=== PATIENT | female | born 2000 | race Caucasian/White ===

== ENCOUNTER 2022-12-11 20:35 | Emergency (ER) | payer OTHER, SELFPAY ==
[2022-12-11 20:36] VITALS: BP 128/79; PULSE 99; RESP 15; TEMP 36.6; O2SAT 98; BMI 39.6
--- NOTE | 2022-12-11 20:49 | EDS_ITS ---
HPI History of Present Illness Chief Complaint: Back [facility] Medical History (Updated 12/11/22 @ 21:04 by Collin Ray) Major depression Vitamin D deficiency Allergy/AdvReac Type Severity Reaction Status Date / Time No Known Allergies Allergy Verified 12/11/22 20:40 Social History Smoking Status: Never smoker EXAM Physical Exam Const Vital Signs: 12/11/22 20:36 Temperature 97.9 F Temperature Source Temporal Pulse Rate 99 Respiratory Rate 15 Blood Pressure 128/79 H Blood Pressure Mean 95 Pulse Ox 98 Oxygen Delivery Method Room Air [facility] Narrative Medical decision making narrative: HISTORY OF PRESENT ILLNESS: 22-year-old F presents with back pain. She notes he injured self at work. She further states she was lifting heavy objects at work and she felt a pull in the right side of her back. She notes the symptoms are worse with moving her upper extremity. She is concerned that this may have injured self at work and that she is not appropriate to return so she came to the ED for further evaluation as any falls, car accidents. Denies any history of similar symptoms. Patient denies any saddle anesthesia, urinary tension, bowel or bladder incontinence, lower extremity weakness, fever or IV drug use, no recent spinal manipulation or surgery, no recent urinary catheterization. REVIEW OF SYSTEMS: All other systems reviewed and are negative except as noted in the history of present illness. At least 10 review of systems reviewed and are negative except as noted in history of present illness. PHYSICAL EXAM: Nursing triage notes reviewed, Vital signs reviewed Constitutional: please see mdm Lungs: Clear to auscultation, No wheezing or rales. No increased work of breathing, no conversational dyspnea, no accessory muscle use, no nasal flaring. No respiratory distress noted Heart: Regular rate and rhythm, No murmurs, No rubs and No gallops, 2+ distal pulses (radial, femoral, posterior tibial) in all extremities Abdomen: Soft, there is no tenderness, rigidity, rebound or guarding, no obvious peritoneal signs, no palpable pulsatile abdominal masses, no auscultated abdominal bruit Back: No midline step-offs or deformities, TTP over right paraspinal musculature. Paraspinal musculature hypertonicity. Neuro: Intact sensation L1-S1 dermatomal distributions. Intact 5/5 strength in hip flexion (T12-L3). Knee extension (L2-L4). Ankle dorsiflexion (L4-L5). Ankle plantar flexion (S1). Great toe extension (L5). 2+ patellar and Achilles DTRs. Skin: No rash or lesions noted MEDICAL DECISION MAKING: Chief Complaint: Back pain External records reviewed: No recent imaging of the back Factors affecting care: None Social determinants of health: No IV drug use History obtained from others: none Consults: none ALL IMAGES (IF OBTAINED) HAVE BEEN PERSONALLY REVIEWED AND INTERPRETED BY MYSELF. MDM Narrative: The patient was hemodynamically stable, afebrile, nontoxic-appearing. Back exam without focal findings. Musculoskeletal hypertonicity. I considered the following differential diagnosis: Musculoskeletal back pain, space-occupying lesion of the spinal (epidural abscess, epidural hematoma), cauda equina, conus medullaris, fracture dislocation, AAA, nephrolithiasis, pyelonephritis, aortic dissection The patient presented complaining of back pain. There was no evidence to support genitourinary etiology. There is also no evidence to suggest vascular pathology such as AAA dissection. No fevers or other evidence to suspect infectious processes, abscess, osteomyelitis etc. The patient?s neurological exam is normal with normal motor and sensory. There is no saddle paresthesias reported and no bowel or bladder incontinence or retention. I suspect the pain is mechanical in nature. Clinical suspicion, plan of care and management was discussed with the patient. The patient was instructed to follow up with their health care provider. The patient was also instructed to return if the pain worsened, changed, or developed weakness or bowel or bladder trouble. The patient agreed with plan. I completed a structured, evidence-based clinical evaluation to screen for acute non-traumatic spinal emergencies. The patient has a normal detailed neurologic exam and red flag historical factors were negative. The evidence indicates that the patient is very low risk for an acute spinal emergency and this is consistent with my clinical intuition. The risk of further workup is higher than the likelihood of the patient having a spinal epidural abscess or other dangerous emergency spinal condition. It is, therefore, in the patient?s best interest not to do additional emergent testing at this time. Shared Decision-Making I have discussed with the patient my clinical impression and the result of an evidence-based clinical evaluation to screen for spinal epidural abscess and other spinal emergencies, as well as the risk of further testing and hospitalization. The evidence shows that the risk for an acute spinal emergency is less than 1%. Although the risk of an acute spinal emergency has not been completely elimin ated, the risks of further testing likely exceed any potential benefit, and the patient agrees with not pursuing further emergent evaluation for causes of back pain at this time. The patient and/or family, caregivers express understanding. The patient and/or family, caregivers agrees with the plan. Total critical care time today provided was at least 0 minutes. This excludes separately billable procedures. Critical care time (if documented) is secondary to the patient having high probability of clinically significant/life threatening deterioration in the patient's condition which required my urgent intervention. Impression: 1. Paraspinal muscle strain Disposition: Discharge Jeff Blanton DO Discharge Plan Triage Chief Complaint: Back ED Provider: Jeff Blanton Dx/Rx/DC Orders Instructions: ED Back Sprain/Strain Stand Alone Forms: ED Work / School Excuse Primary Care Provider: FITO PRADO CNP Referrals: [facility] [Group of Physicians] - Activity Restrictions/Additional Instructions: Thank you for trusting us with your care today! Please take Tylenol (2 pills, 650 mg), ibuprofen (2 pills, 400 mg) every 6 hours as needed for pain and fever control. Please return to the emergency department if your symptoms change or worsen. Specifically develop worsening back pain, you develop difficulty with sensation on your private parts, bowel or bladder incontinence, urinary retention or loss of movement or sensation in your legs [facility] and specific return to work instructions. Disposition Disposition: Home, Self Care Discharge Date/Time: 12/11/22 22:34
[2022-12-11] MEDS: Ibuprofen 200 MG Tablet 400 MG PO (22:12)
--- NOTE | 2022-12-11 22:16 | ED.RN ---
called [facility] twice and left messages for [facility] drug screening. Pt was discharged and told to follow up with [facility]
== END 2022-12-11 22:34 | disposition home or self-care (01) ==
PROVIDERS: Emergency Provider Emergency Medicine; Visit Provider Emergency Medicine
DX: S39.012A Strain of muscle, fascia and tendon of lower back, initial encounter (principal); X50.0XXA Overexertion from strenuous movement or load, initial encounter; Y99.0 Civilian activity done for income or pay; Y92.69 Other specified industrial and construction area as the place of occurrence of the external cause
CPT/HCPCS: 99283